=== PATIENT | male | born 1985 | race African-American/Black ===

== ENCOUNTER 2016-04-23 07:34 | Emergency (ER) | payer MEDICAID ==
[~2016-04-23] VITALS: Ht 180.3 cm; Wt 77.1 kg
[2016-04-23 07:40] VITALS: BP 119/61
[2016-04-23] MEDS ORDERED: ALBUTEROL SULF 2.5 MG/0.5ML(0.5%) NEB SOLN NEB ONE ×2 (08:30→09:00)
[2016-04-23] MEDS ORDERED: IPRATROPIUM BROM 0.5 MG/2.5ML INH SOL NEB ONE ×2 (08:30→09:00)
[2016-04-23] MEDS ORDERED: methylPREDNISolone SOD SUCC 125 MG/2 ML VL IM ONE (09:00)
== END 2016-04-23 09:31 | disposition home or self-care (01) ==
LOC: ER 07:40
DX: J45.901 Unspecified asthma with (acute) exacerbation (principal); Z76.0 Encounter for issue of repeat prescription; F17.210 Nicotine dependence, cigarettes, uncomplicated
CPT/HCPCS: 94640; 96372; 99284; J2930

== ENCOUNTER 2016-12-07 22:14 | Emergency (ER) | payer MEDICAID, OTHER ==
[~2016-12-07] VITALS: Ht 180.3 cm; Wt 65.3 kg
[2016-12-07 22:20] VITALS: BP 101/81
[2016-12-07] MEDS ORDERED: IPRATROPIUM BROM 0.5 MG/2.5ML INH SOL NEB ONE (22:30)
[2016-12-07] MEDS ORDERED: ALBUTEROL SULF 2.5 MG/0.5ML(0.5%) NEB SOLN NEB ONE (22:30)
== END 2016-12-08 02:22 | disposition left against medical advice (07) ==
LOC: ER 22:16
DX: R06.02 Shortness of breath (principal); Z53.21 Procedure and treatment not carried out due to patient leaving prior to being seen by health care provider
CPT/HCPCS: 71010; 94640

== ENCOUNTER 2024-08-15 03:25 | Emergency (ER) | payer MEDICAID, OTHER ==
[~2024-08-15] VITALS: Ht 180.3 cm; Wt 67.6 kg
[2024-08-15 03:53] VITALS: BP 123/77; RESP 20; TEMP 98.8; O2SAT 96
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
[2024-08-15] MEDS: ACETAMINOPHEN 325 MG TAB PO ONE (04:15)
--- NOTE | 2024-08-15 04:40 | DVH ---
EXAM: CT HEAD WITHOUT CONTRAST INDICATION: head injury TECHNIQUE: CT of the head without intravenous contrast. Radiation Dose : 1. Head: CT Dose: CTDI volume is 7.81 mGy. Dose-length product is 1265.94 mGy*cm The dose indicators for CT are the volume Computed Tomography (CT) Dose Index (CTDIvol) and the Dose Length Product (DLP), and are measured in units of mGy and mGy-cm, respectively. These indicators are not patient dose, but values generated from the CT scanner acquisition factors. The report includes radiation exposure data for exposures received during this examination. COMPARISON: None FINDINGS: There is no evidence of acute intracranial hemorrhage, extra-axial collection, mass effect, midline s hift, herniation or hydrocephalus. The ventricles, sulci and cisterns are age appropriate. The sr-white differentiation is intact. The visualized paranasal sinuses and mastoid air cells are clear. The surrounding soft tissues and osseous structures are unremarkable. IMPRESSION: No acute intracranial abnormality. Radiation optimization: All CT scans at this facility use at least one of these dose optimization lisandra hniques: automated exposure control mA and/or kV adjustment per patient size (includes targeted exam s where dose is matched to clinical indication) or iterative reconstruction.
--- NOTE | 2024-08-15 04:52 | DVH ---
Procedure: CT CHEST WITHOUT CONTRAST Reason for study/Clinical History: bilateral rib cage pain Comparison Study: None TECHNIQUE: Multidetector CT of the chest was performed from the lung apices to the upper abdomen with out the use of intravenous contract. Axial, coronal and sagittal multiplanar reformats were performed . Radiation Dose Information: CT Dose: CTDI volume is 7.8 mGy. Dose-length product is 1266 mGy*cm The dose indicators for CT are the volume Computed Tomography (CT) Dose Index (CTDIvol) and the Dose Length Product (DLP), and are measured in units of mGy and mGy-cm, respectively. These indicators are not patient dose, but values generated from the CT scanner acquisition factors. The report includes radiation exposure data for exposures received during this examination. FINDINGS: Lower neck: Unremarkable. Lungs: No focal consolidation. No suspicious pulmonary nodule. Heart/Vascular Structures: Normal heart size. No pericardial effusion. Lymph Nodes: No adenopathy Pleura: No pleural effusion or significant pneumothorax. Musculoskeletal: No acute osseous abnormality. Soft tissues: Normal. Upper abdomen: Multiple bilateral punctate nonobstructing renal stones. IMPRESSION: No acute intrathoracic abnormality. Multiple bilateral punctate nonobstructing renal stones. Radiation optimization: All CT scans at this facility use at least one of these dose optimization lisandra hniques: automated exposure control mA and/or kV adjustment per patient size (includes targeted exam s where dose is matched to clinical indication) or iterative reconstruction.
[2024-08-15] MEDS ORDERED: ACET500T58 PO (05:01)
[2024-08-15 05:39] LABS: Basophils # (auto) 0 10 ^3/uL (0-0.2); Basophils % (auto) 0.4 % (0.0-2.0); Eosinophils # (auto) 0.1 10 ^3/uL (0-0.8); Eosinophils % (auto) 1.2 % (0.0-7.0); Hematocrit 45.7 % (41.0-53.0); Hemoglobin 15.3 g/dL (13.5-17.5); Lymphocytes # (auto) 1.4 10 ^3/uL (0.4-5.4); Lymphocytes % (auto) 26.1 % (10.0-50.0); Mean Corpuscular Hemoglobin 31.9 pg (28.0-32.0); Mean Corpuscular Hgb Conc. 33.5 g/dL (32.0-36.0); Mean Corpuscular Volume 95.1 fL (80.0-100.0); Monocytes # (auto) 0.3 10 ^3/uL (0-1.3); Monocytes % (auto) 6.2 % (0.0-12.0); Neutrophils # (auto) 3.4 10 ^3/uL (1.6-8.6); Neutrophils % (auto) 66.1 % (37.0-80.0); Platelet Count (auto) 215 10^3/uL (140-450); Red Blood Cells 4.81 10^6/uL (4.5-5.90); Red Cell Distribution Width 12.6 % (11.8-14.3); White Blood Cell 5.2 10^3/uL (4.4-10.8)
[2024-08-15 05:51] LABS: INR 1.07 (0.9-1.15); Partial Thromboplastin Time 24.5 SEC (24.5-34.5); Prothrombin Time 11.3 sec (9.3-11.8)
[2024-08-15 05:56] VITALS: PULSE 77
[2024-08-15 05:58] LABS: Chloride 105 mmol/L (98-107); Potassium 4.6 mmol/L (3.5-5.1); Sodium 138 mmol/L (136-145)
[2024-08-15 05:59] LABS: Anion Gap 9 (5-15); Carbon Dioxide 24 mmol/L (20-31)
[2024-08-15 06:02] LABS: Calcium 10.7 mg/dL (8.7-10.4)
[2024-08-15 06:04] LABS: Glucose 84 mg/dL (74-106)
[2024-08-15 06:05] LABS: BUN/Creatinine Ratio 5.3 (10.0-20.0)
[2024-08-15 06:06] LABS: Blood Urea Nitrogen 8 mg/dL (9-23)
--- NOTE | 2024-08-15 06:25 | ECG ---
[facility] Test Date: 2024-08-15 Test Time: 05:52:28 Pat Name: GRICELDA CUEVAS Department: ED Room: Gender: Thickener Operator: : 1985 Requested By: VISHAL BURNS Order Number: [id number] Reading MD: Tramaine Bashir Measurements Intervals [place] Rate: 77 P: 84 IA: 176 QRS: -73 QRSD: 92 T: 83 QT: 371 QTc: 420 Interpretive Statements Sinus rhythm Biatrial enlargement Left anterior fascicular block RSR' in V1 or V2, right VCD or RVH ST elevation suggests acute pericarditis Electronically Signed On 08-15-2024 21:15:14 PDT by Tramaine Bashir Please click the below link to view image of tracing.
== END 2024-08-15 06:06 | disposition home or self-care (01) ==
LOC: ER 03:25
DX: S20.213A Contusion of bilateral front wall of thorax, initial encounter (principal); J45.909 Unspecified asthma, uncomplicated; F12.90 Cannabis use, unspecified, uncomplicated; Z88.6 Allergy status to analgesic agent; Z88.0 Allergy status to penicillin; Z79.899 Other long term (current) drug therapy; V49.9XXA Car occupant (driver) (passenger) injured in unspecified traffic accident, initial encounter; Y93.89 Activity, other specified; Y92.488 Other paved roadways as the place of occurrence of the external cause; Y99.8 Other external cause status
CPT/HCPCS: 36415; 70450; 71250; 80048; 84484; 85025; 85610; 85730; 93005